=== PATIENT | female | born 1995 | race Hispanic/Latino ===

== ENCOUNTER 2022-01-15 09:13 | Emergency (ER) | payer OTHER ==
[~2022-01-15] VITALS: Ht 165.1 cm; Wt 137.6 kg
[2022-01-15] MEDS ORDERED: BACTRIM DS TAB1 EACH PO (10:28)
== END 2022-01-15 10:41 | disposition home or self-care (01) ==
LOC: FSED 10:41
DX: R42 Dizziness and giddiness (principal); R07.9 Chest pain, unspecified; M26.602 Left temporomandibular joint disorder, unspecified; N39.0 Urinary tract infection, site not specified; R20.0 Anesthesia of skin
CPT/HCPCS: 80053; 81003; 81025; 82553; 84484; 85025; 93005; 99283